=== PATIENT | female | born 1950 | race Caucasian/White ===

== ENCOUNTER → 2021-04-15 | Outpatient (CLI) | payer MEDICARE, OTHER ==
--- NOTE | 2021-04-15 12:08 | DIREP ---
PROCEDURE:MRI ABDOMEN W & W/O CONTRAST COMPARISON:[facility] [place], CT, CT ABD/PELVIS W&W/O, 06/25/2019, 10:03 AM. INDICATIONS:COMPLEX RENAL CYST, CYST OF KIDNEY TECHNIQUE:A comprehensive examination was performed utilizing a variety of imaging planes and imaging parameters to optimize visualization of suspected pathology. Images were obtained both before and after intravenous gadolinium infusion. FINDINGS: LIVER:Variable fatty deposition, a scarring along the gallbladder fossa, no ascites or focal liver lesion identified BILIARY:Normal. PANCREAS:Normal. SPLEEN:Normal. KIDNEYS:Right renal cyst. This measures 6.3 cm in diameter. Minimal internal thin septation. Left kidney reveals multiple cystic lesions. Largest is simple in appearance, measuring 7.1 cm in diameter. There is a smaller hyperdense lesion measuring 1.9 cm. No definite suspicious mass. ADRENALS:Normal. AORTA/VASCULAR:Normal. RETROPERITONEUM:Normal. BOWEL/MESENTERY:Normal. ABDOMINAL WALL:Normal. BONES:Normal. CONCLUSION:Bilateral renal cysts. Hyperdense lesion on the left, 1.9 cm in size, without significant interval change dating back to June 2019 Dictated by: Ritchie Akbar MD on 04/15/2021 at 11:55 AM
== END | disposition home or self-care (01) ==
LOC: RAD 09:39
PROVIDERS: ATTEND Urology
DX: N28.1 Cyst of kidney, acquired (principal); N28.89 Other specified disorders of kidney and ureter
CPT/HCPCS: 74183; A9579

== ENCOUNTER → 2021-09-16 | Outpatient (CLI) | payer MEDICARE, OTHER ==
--- NOTE | 2021-09-17 10:35 | DIREP ---
PROCEDURE: MRI JOINTT LOWER EXT-LT W&W/O COMPARISON:None. INDICATIONS:CHRONIC PAIN OF LEFT ANKLE TECHNIQUE:Multiplanar multi sequence MRI was performed of the ankle, without IV contrast. FINDINGS: LIGAMENTS:The anterior and posterior talofibular ligaments are intact. The syndesmotic ligament is intact. The deltoid ligamentous complex is intact. The spring ligament and Lisfranc ligament are intact. TENDONS:Achilles tendon is intact. Extensive split tearing of posterior tibialis tendon posterior to the malleolus and distal to the malleolus. Evidence of peroneal tendon tenosynovitis posterior to the malleolus with split tearing of peroneus brevis . The extensor tendons are intact. MUSCLES: No high signal within the muscle bellies. BONES:Significant tibiotalar degenerative joint disease with moderate tibiotalar effusion and degenerative bone marrow edema on both sides of the joint space, most pronounced involving the posterior aspect of the medial tibial plafond. Full-thickness cartilaginous denuding. Subtalar joint within normal limits. JOINT SPACES: Moderate tibiotalar effusion CONCLUSION: 1. Advanced tibiotalar degenerative joint disease with associated moderate joint effusion and cartilaginous denuding of the tibiotalar joint. 2. Extensive split tears of the posterior tibialis tendon. 3. Mild split tearing of peroneus brevis. 4. Significant tenosynovitis of the peroneal tendon sheath posterior to the malleolus Dictated by: Curtis Seay DO on 09/17/2021 at 10:22 AM
== END | disposition home or self-care (01) ==
LOC: RAD 13:57
PROVIDERS: ATTEND Internal Medicine Hematology & Oncology
DX: M65.872 Other synovitis and tenosynovitis, left ankle and foot (principal); M19.072 Primary osteoarthritis, left ankle and foot; S96.912A Strain of unspecified muscle and tendon at ankle and foot level, left foot, initial encounter; X58.XXXA Exposure to other specified factors, initial encounter; Y93.89 Activity, other specified; Y92.89 Other specified places as the place of occurrence of the external cause; Y99.8 Other external cause status
CPT/HCPCS: 73723; A9579

== ENCOUNTER → 2022-06-02 | Outpatient (CLI) | payer MEDICARE, OTHER ==
--- NOTE | 2022-06-03 09:57 | DIREP ---
PROCEDURE:MRI ABDOMEN W & W/O CONTRAST COMPARISON:[facility], CT, CT ABD/PELVIS W&W/O, 06/25/2019, 10:03 AM. [facility], MR, MRI ABDOMEN W & W/O CONTRAST, 04/15/2021, 10:01 AM. INDICATIONS:N28.1 CYST OF KIDNEY TECHNIQUE:A comprehensive examination was performed utilizing a variety of imaging planes and imaging parameters to optimize visualization of suspected pathology. Images were obtained both before and after intravenous gadolinium infusion. FINDINGS: LIVER:Top-normal liver size with the right hepatic lobe measuring 17.5 cm in craniocaudal direction. Significant fatty infiltration. BILIARY:Normal. PANCREAS:Cystic lesion in the uncinate process measuring 9 mm stable from the prior. This measured 8 mm in 2019. SPLEEN:Normal. KIDNEYS:Right renal cyst. This measures 5.7 cm, previously 6.6 cm in diameter. Minimal internal thin septation. Left kidney reveals multiple cystic lesions. Largest is simple in appearance, measuring 6.8 previously 7.1 cm in diameter. There is a smaller low T2 left inferior pole findings measuring 1.9 previously 2.2 cm. In 2019 this measured 2.2 cm. No definite suspicious mass. ADRENALS:Normal. AORTA/VASCULAR:Normal. RETROPERITONEUM:Normal. BOWEL/MESENTERY:Normal. ABDOMINAL WALL:Normal. BONES:Normal. CONCLUSION: 1. Bilateral renal cysts, stable or decreased in size. Low T2 round lesion the posterior left kidney is stable in size or slightly decreased in size. This finding does not demonstrate enhancement on subtraction post contrast imaging suggesting a benign finding. The findings also stable since 2019. 2. Cystic finding in the uncinate process of the pancreas, IPMN can't be excluded. This finding is stable since 2019. 3. Follow-up MRI in 6-12 months could be performed to confirm stability of probably benign findings above. Dictated by: Cirilo Castellanos MD on 06/03/2022 at 09:07 AM
== END | disposition home or self-care (01) ==
LOC: RAD 13:59
PROVIDERS: ATTEND Urology
DX: N28.1 Cyst of kidney, acquired (principal)
CPT/HCPCS: 74183; A9579